=== PATIENT | male | born 1930 | race Caucasian/White ===

== ENCOUNTER 2020-04-01 14:06 | Emergency (ER) | payer MEDICARE, BC ==
--- NOTE | 2020-04-01 14:29 | EDM.PDOC ---
ED [facility] GENERAL MEDICAL PROBLEM - General Stated Complaint: CHEST PAIN Time Seen by Provider: 04/01/20 14:15 Source of Information: Reports: Patient History Limitations: Reports: No Limitations - History of Present Illness INITIAL COMMENTS - FREE TEXT/NARRATIVE: Patient comes in the emergency department with complaints of right sided chest discomfort. Patient states that the pain started approximately 7 hours ago. He did make an appointment at the clinic however they could not see him for another hour so they presented him to the emergency department for further evaluation and work-up. Patient states that he woke up and when he tried to get out of bed he noticed he had a right sided sternal discomfort. He states that it does hurt more with movement. He is states that it had progressed throughout the morning he did try to take a Tums with no relief. He denies any nausea or vomiting or discomfort radiating to his jaw or neck region. He states now that he is at the hospital with the pain has almost completely gone however he is able to pinpoint the location where the tenderness was noted. He states with deeper palpation of the region he could feel more discomfort. Patient denies currently having any chest pain, shortness of breath, nausea, vomiting, urinary concerns, or peripheral edema. Patient also states he is had no contact with any individuals with COVID 19 and states has been relatively healthy this winter. Patient also denies any strenuous activity within the last 24 to 48 hours. Onset: Sudden Location: Reports: Chest Quality: Reports: Sharp, Throbbing Improves with: Reports: Immobilization Worsens with: Reports: Movement Context: Reports: Other ED ROS GENERAL - Review of Systems Review Of Systems: Comprehensive ROS is negative, except as noted in HPI. Constitutional: Reports: No Symptoms HEENT: Reports: No Symptoms Respiratory: Reports: No Symptoms Endocrine: Reports: No Symptoms : Reports: No Symptoms Musculoskeletal: Reports: No Symptoms Skin: Reports: No Symptoms Neurological: Reports: No Symptoms Psychiatric: Reports: No Symptoms Hematologic/Lymphatic: Reports: No Symptoms ED EXAM, GENERAL - Physical Exam Exam: See Below Exam Limited By: No Limitations General Appearance: Alert, WD/WN, No Apparent Distress Head: Atraumatic, Normocephalic Respiratory/Chest: No Respiratory Distress, Lungs Clear, Normal Breath Sounds, No Accessory Muscle Use, Other (palpable discomfort noted with touch over 7-8 rib cage region and when when lifting arm up ) Cardiovascular: Normal Peripheral Pulses, Regular Rate, Rhythm, No Edema, No Gallop Back Exam: Normal Inspection, Full Range of Motion Extremities: Normal Inspection, Normal Range of Motion, Non-Tender, No Pedal Edema, Normal Capillary Refill Course - Orders/Labs/Meds Orders: Active Orders 24 hr Category Date Time Status EKG Documentation Completion [RC] STAT Care 04/01/20 14:35 Active Labs: Laboratory Tests 04/01/20 04/01/20 Range/Units 14:47 14:47 WBC 6.4 (4.0-10.0) x10^3/uL RBC 4.63 (4.5-6.0) x10^6/uL Hgb 13.4 L (14.0-18.0) g/dL Hct 41.0 (40.0-52.0) % MCV 88.6 (78.0-93.0) fL MCH 28.9 (26.0-32.0) pg MCHC 32.7 (32.0-36.0) g/dL RDW Coeff of Liz 14.2 (10.0-15.0) % Plt Count 172 (130-400) x10^3/uL Neut % (Auto) 72.2 (50.0-80.0) % Lymph % (Auto) 16.1 L (25.0-50.0) % [place] % (Auto) 9.9 (2.0-11.0) % Eos % (Auto) 1.6 (0.0-4.0) % Baso % (Auto) 0.2 (0.2-1.2) % Sodium 143 (136-145) mmol/L Potassium 3.8 (3.5-5.1) mmol/L Chloride 107 (98-107) mmol/L Carbon Dioxide 30 (21-32) mmol/L Anion Gap 9.8 L (10-20) mmol/L BUN 32 H (7-18) mg/dL Creatinine 1.4 H (0.70-1.30) mg/dL Est Cr Clr Drug Dosing TNP Estimated GFR (MDRD) 48 Glucose 101 (74-106) mg/dL Calcium 8.6 (8.5-10.1) mg/dL Corrected Calcium 9.16 (8.5-10.1) mg/dL Total Bilirubin 0.4 (0.2-1.0) mg/dL AST 15 (15-37) U/L ALT 15 L (16-63) U/L Alkaline Phosphatase 52 (46-116) U/L Troponin I < 0.017 (<=0.056) ng/mL Total Protein 6.3 L (6.4-8.2) g/dL Albumin 3.3 L (3.4-5.0) g/dL Globulin 3.0 Albumin/Globulin Ratio 1.10 Departure - Departure Time of Disposition: 15:25 Disposition: Home, Self-Care 01 Condition: Good Clinical Impression: Muscle strain of chest wall Qualifiers: Encounter type: initial encounter Qualified Code(s): S29.011A - Strain of muscle and tendon of front wall of thorax, initial encounter - Discharge Information *PRESCRIPTION DRUG MONITORING PROGRAM REVIEWED*: Not Applicable *COPY OF PRESCRIPTION DRUG MONITORING REPORT IN PATIENT ALICIA: Not Applicable Instructions: Muscle Strain, [id number], How to Use Cold Therapy, [id number] Additional Instructions: 1. Rest 2. Avoid strenuous use of the right shoulder arm if chest wall is tender 3. Can use tylenol and ibuprofen as needed for pain and discomfort 4. Diet as tolerated 5. Activity as tolerated 6. Elevated the injured area above the level of the heart to decrease swelling and discomfort. 7. Use ice 3-4 times a day at 20-minute intervals to help with any swelling and discomfort 8. Follow-up with your primary care provider symptoms continue or to progress 9. Follow with any questions or concerns 10. Discharge information has been provided regarding your injury - My Orders Last 24 Hours: My Active Orders 04/01/20 14:35 EKG Documentation Completion [RC] STAT - Assessment/Plan Last 24 Hours: My Active Orders 04/01/20 14:35 EKG Documentation Completion [RC] STAT Assessment:: 1. Chest pain 2. Chest wall muscle strain right side Plan: 1. Labs completed in the ER. Results reviewed with the patient 2. Chest xray completed in ER. Results reviewed with the patient 3. Did offer pain medications for discomfort however pt declined 4. EKG was completed in ER. Results reviewed with the patient 5. Patient and nursing staff was updated regarding the plan of care 6. Education provided the patient regarding activity, diet, rest, [id number] medication modalities, and follow-up care was provided 7. Patient and family are agreeable to the above plan of care 8. All questions and concerns were addressed with the patient and family prior to discharge
--- NOTE | 2020-04-01 15:03 | CR ---
[id number] RAD/RAD Chest PA or AP 1V EXAM: FRONTAL CHEST INDICATION: RIGHT SIDE CHEST PAIN. COMPARISON: None. DISCUSSION: Minor linear scarring or subsegmental atelectasis in the lung bases with no definite infiltrates. The heart is at upper limits of normal for size without evidence of congestive heart failure. Mild tortuosity of the thoracic aorta. IMPRESSION: 1. Mild linear scarring or atelectasis in the imaged lung bases. Adeel Benito MD 04/01/20 [id number] Thank you for allowing us to participate in the care of your patient.
[2020-04-01 15:18] LABS: ANION GAP 9.8 mmol/L (10-20); CHLORIDE,CL 107 mmol/L (98-107); SODIUM,NA 143 mmol/L (136-145)
== END 2020-04-01 15:39 | disposition home or self-care (01) ==
LOC: VM.ED 14:06
DX: S29.011A Strain of muscle and tendon of front wall of thorax, initial encounter (principal); X58.XXXA Exposure to other specified factors, initial encounter
CPT/HCPCS: 36415; 71045; 80053; 84484; 85025; 93005; 99283-GF; 99285-25

== ENCOUNTER 2021-04-10 18:40 | Emergency (ER) | payer MEDICARE, BC ==
--- NOTE | 2021-04-10 19:31 | EDM.PDOC ---
ED [facility] GENERAL MEDICAL PROBLEM - General Stated Complaint: STOMACH PAIN Time Seen by Provider: 04/10/21 19:29 Source of Information: Reports: Patient History Limitations: Reports: No Limitations - History of Present Illness INITIAL COMMENTS - FREE TEXT/NARRATIVE: Patient states that he had a good noon meal and about 2 hours after this he developed epigastric pain. No diaphoresis, no vomiting. Never had pain like this before. Decided to come in at 18:30 Pain has resolved since arrival. Did take a rolaids. Did have an episode a few weeks ago of something feeling stuck while he was eating and it took like 20 minutes to pass. He feels fine now. Onset: Today (1500) Duration: Hour(s):, Resolved Prior to Arrival Location: Reports: Abdomen Quality: Reports: Dull Severity: Moderate Improves with: Reports: None Worsens with: Reports: None - Related Data Allergies Allergy/AdvReac Type Severity Reaction Status Date / Time No Known Allergies Allergy Verified 04/01/20 21:02 Home Meds: Home Meds . [No Known Home Meds] 04/01/20 [History] Past Medical History Cardiovascular History: Reports: Hypertension Endocrine/Metabolic History: Reports: Hypothyroidism ED ROS GENERAL - Review of Systems Review Of Systems: See Below Constitutional: Reports: No Symptoms. Denies: Fever, Chills, Malaise, Decreased Appetite HEENT: Reports: No Symptoms. Denies: Eye Pain, Nosebleed, Nose Pain, Throat Pain, Throat Swelling Respiratory: Reports: No Symptoms. Denies: Shortness of Breath, Wheezing, Cough, Sputum Cardiovascular: Reports: No Symptoms. Denies: Chest Pain, Blood Pressure Problem, Dyspnea on Exertion Endocrine: Reports: No Symptoms. Denies: Fatigue GI/Abdominal: Reports: Abdominal Pain, Decreased Appetite. Denies: Black Stool, Bloody Stool, Diarrhea, Difficulty Swallowing, Nausea, Vomiting : Reports: No Symptoms. Denies: Dysuria, Frequency, Urgency Musculoskeletal: Reports: No Symptoms Skin: Reports: No Symptoms Neurological: Reports: No Symptoms Psychiatric: Reports: No Symptoms Hematologic/Lymphatic: Reports: No Symptoms ED EXAM, GI/ABD - Physical Exam Exam: See Below Exam Limited By: No Limitations General Appearance: Alert, WD/WN, No Apparent Distress Eyes: Bilateral: Normal Appearance, EOMI Ears: Normal External Exam Nose: Normal Inspection Throat/Mouth: Normal Inspection, Normal Lips, Normal Oropharynx, Normal Voice Head: Atraumatic, Normocephalic Neck: Normal Inspection, Supple, Non-Tender Respiratory/Chest: No Respiratory Distress, Lungs Clear, Normal Breath Sounds, No Accessory Muscle Use, Chest Non-Tender Cardiovascular: Normal Peripheral Pulses, Regular Rate, Rhythm, No Murmur GI/Abdominal Exam: Normal Bowel Sounds, Soft, Non-Tender, No Abnormal Bruit. No: Rigid, Rebound, Tender Back Exam: Normal Inspection, Full Range of Motion. No: CVA Tenderness (L), CVA Tenderness (R) Extremities: Normal Inspection, Normal Range of Motion #1 Interpretation EKG Date: 04/10/21 Time: 19:28 Rhythm: NSR Rate (Beats/Min): 76 [place]: LAD-Left [place] Deviation P-Wave: Present QRS: Normal ST-T: Normal EKG Interpretation Comments: PAC Course - Orders/Labs/Meds Orders: Active Orders 24 hr Category Date Time Status EKG Documentation Completion [RC] STAT Care 04/10/21 19:26 Active Abdomen Pelvis wo Cont [CT] Stat Exams 04/10/21 20:17 Taken Labs: Laboratory Tests 04/10/21 04/10/21 04/10/21 Range/Units 19:53 19:53 19:53 WBC 7.9 (4.0-10.0) x10^3/uL RBC 5.24 (4.5-6.0) x10^6/uL Hgb 15.0 D (14.0-18.0) g/dL Hct 44.7 (40.0-52.0) % MCV 85.3 D (78.0-93.0) fL MCH 28.6 (26.0-32.0) pg MCHC 33.6 (32.0-36.0) g/dL RDW Coeff of Liz 14.8 (10.0-15.0) % Plt Count 201 (130-400) x10^3/uL Neut % (Auto) 82.4 H (50.0-80.0) % Lymph % (Auto) 10.1 L (25.0-50.0) % [place] % (Auto) 6.1 (2.0-11.0) % Eos % (Auto) 1.4 (0.0-4.0) % Baso % (Auto) 0.0 L (0.2-1.2) % Sodium 140 (136-145) mmol/L Potassium 4.1 (3.5-5.1) mmol/L Chloride 104 (98-107) mmol/L Carbon Dioxide 27 (21-32) mmol/L Anion Gap 13.1 (5-15) mmol/L BUN 32 H (7-18) mg/dL Creatinine 1.5 H (0.70-1.30) mg/dL Est Cr Clr Drug Dosing TNP Estimated GFR (MDRD) 44 Glucose 132 H (70-99) mg/dL Calcium 9.0 (8.5-10.1) mg/dL Corrected Calcium 9.5 (8.5-10.1) mg/dL Total Bilirubin 0.3 (0.2-1.0) mg/dL AST 20 (15-37) U/L ALT 18 (16-63) U/L Alkaline Phosphatase 70 (46-116) U/L Troponin I High Sens 6 (<=76) ng/L Total Protein 7.3 (6.4-8.2) g/dL Albumin 3.4 (3.4-5.0) g/dL Globulin 3.9 Albumin/Globulin Ratio 0.87 Lipase 130 (73-393) U/L TSH, Ultra Sensitive 4.856 H (0.358-3.74) uIU/mL Urine Color (YELLOW) Urine Appearance (CLEAR) Urine pH (5.0-8.0) Ur Specific [place] Urine Protein (NEGATIVE) mg/dL Urine Glucose (UA) (NEGATIVE) mg/dL Urine Ketones (NEGATIVE) mg/dL Urine Occult Blood (NEGATIVE) Urine Nitrite (NEGATIVE) Urine Bilirubin (NEGATIVE) Urine Urobilinogen (0.2) EU/dL Ur Leukocyte Esterase (NEGATIVE) Urine RBC (NOT SEEN) /HPF Urine WBC (NOT SEEN) /HPF Ur Squamous Epith Cells (NOT SEEN) /HPF Urine Bacteria (NOT SEEN) /HPF Urine Mucus (NOT SEEN) /LPF 04/10/21 Range/Units 20:48 WBC (4.0-10.0) x10^3/uL RBC (4.5-6.0) x10^6/uL Hgb (14.0-18.0) g/dL Hct (40.0-52.0) % MCV (78.0-93.0) fL MCH (26.0-32.0) pg MCHC (32.0-36.0) g/dL RDW Coeff of Liz (10.0-15.0) % Plt Count (130-400) x10^3/uL Neut % (Auto) (50.0-80.0) % Lymph % (Auto) (25.0-50.0) % [place] % (Auto) (2.0-11.0) % Eos % (Auto) (0.0-4.0) % Baso % (Auto) (0.2-1.2) % Sodium (136-145) mmol/L Potassium (3.5-5.1) mmol/L Chloride (98-107) mmol/L Carbon Dioxide (21-32) mmol/L Anion Gap (5-15) mmol/L BUN (7-18) mg/dL Creatinine (0.70-1.30) mg/dL Est Cr Clr Drug Dosing Estimated GFR (MDRD) Glucose (70-99) mg/dL Calcium (8.5-10.1) mg/dL Corrected Calcium (8.5-10.1) mg/dL Total Bilirubin (0.2-1.0) mg/dL AST (15-37) U/L ALT (16-63) U/L Alkaline Phosphatase (46-116) U/L Troponin I High Sens (<=76) ng/L Total Protein (6.4-8.2) g/dL Albumin (3.4-5.0) g/dL Globulin Albumin/Globulin Ratio Lipase (73-393) U/L TSH, Ultra Sensitive (0.358-3.74) uIU/mL Urine Color Yellow (YELLOW) Urine Appearance Clear (CLEAR) Urine pH 5.5 (5.0-8.0) Ur Specific [place] >=1.030 Urine Protein Negative (NEGATIVE) mg/dL Urine Glucose (UA) Negative (NEGATIVE) mg/dL Urine Ketones Negative (NEGATIVE) mg/dL Urine Occult Blood Negative (NEGATIVE) Urine Nitrite Negative (NEGATIVE) Urine Bilirubin Negative (NEGATIVE) Urine Urobilinogen 1.0 (0.2) EU/dL Ur Leukocyte Esterase Negative (NEGATIVE) Urine RBC 5-10 H (NOT SEEN) /HPF Urine WBC 0-5 (NOT SEEN) /HPF Ur Squamous Epith Cells Not seen (NOT SEEN) /HPF Urine Bacteria Rare (NOT SEEN) /HPF Urine Mucus Moderate H (NOT SEEN) /LPF - Radiology Interpretation Free Text/Narrative:: increased attenuation in the gallbladder likely gael stones or sludge, gallbladder wall thickening. acute cholecystitis is suspected, aneurysmal dilatation of the infracrenal aorta 6.1 cm non emergent surgical referral is recommended, marked enlargement of the prostate. interpreted by radiology - Re-Assessments/Exams Free Text/Narrative Re-Assessment/Exam: 04/10/21 19:46 Patient does not currently have pain. will check labs, urine and ekg. 04/10/21 21:48 Discussed with patient, significant other and son. they understand the diagnosis, need for follow up and when to return. He has a PC and will follow up . Labs otherwise look good. return as needed. Will send with hydrocodone a nd zofran Departure - Departure Time of Disposition: 21:39 Disposition: Home, Self-Care 01 Clinical Impression: Hypothyroid, Cholecystitis, Abdominal aortic aneurysm (AAA) >39 mm diameter, BPH (benign prostatic hyperplasia) - Discharge Information *PRESCRIPTION DRUG MONITORING PROGRAM REVIEWED*: Not Applicable *COPY OF PRESCRIPTION DRUG MONITORING REPORT IN PATIENT ALICIA: Not Applicable Instructions: Abdominal Aortic Aneurysm, [id number], Hypothyroidism, Gallbladder Eating Plan, Cholecystitis, [id number], Benign Prostatic Hyperplasia Referrals: Bozena Roldan, [Primary Care Provider] - Additional Instructions: You TSH is mildly elevated, contact your physician to discuss changes in your thyroid medications You have an abdominal aneursym below the renal arteries measuring 6.1 cm. No signs of dissection or rupture noted. Non emergent surgical evaluation and correction is needed. You primary care physician can set this up. Call tomorrow You have enlargement of your prostate gland, this will cause you to struggle to empty your bladder or get up at night to urinate. Call your physician for referral to urology for management You have gallbladder wall thickening and inflammation. Your white blood cell count and liver function are normal. This needs surgical referral for removal and may continue to bother you . Follow a low fat diet. Use the nausea medication every 8 hours as needed for upset stomach and use the pain medication every 6 hours as needed for pain. This will cause constipation. Make ap pointment with surgeon for referral and surgery. return to the ED as needed for abdominal pain not managed. - My Orders Last 24 Hours: My Active Orders 04/10/21 19:26 EKG Documentation Completion [RC] STAT 04/10/21 20:17 Abdomen Pelvis wo Cont [CT] Stat - Assessment/Plan Last 24 Hours: My Active Orders 04/10/21 19:26 EKG Documentation Completion [RC] STAT 04/10/21 20:17 Abdomen Pelvis wo Cont [CT] Stat
[2021-04-10 20:44] LABS: CHLORIDE,CL 104 mmol/L (98-107); SODIUM,NA 140 mmol/L (136-145)
[2021-04-10 20:46] LABS: ANION GAP 13.1 mmol/L (5-15)
[2021-04-10] MEDS ORDERED: Take Home: Acetaminophen/HYDROcodone 325-5 MG, 5 Tab Pack PO ONE (21:45)
[2021-04-10] MEDS ORDERED: Take Home: Ondansetron 4 MG Tab.DIS, 2 Tab Pack PO ONE (21:45)
--- NOTE | 2021-04-11 07:48 | CT ---
[id number] CT/CT Abdomen Pelvis WO IV EXAM: CT Abdomen Pelvis WO IV CLINICAL DATA: ABDOMINAL PAIN COMPARISON STUDY: None. FINDINGS: Dependent atelectasis at the lung bases. Chronic interstitial changes at the lung bases. Coronary artery disease. Atherosclerotic calcifications of aorta and its branches. Infrarenal abdominal aortic aneurysm measuring up to 6.4 cm. Multiple layering stones within the gallbladder. The gallbladder is distended. There is pericholecystic fluid and gallbladder wall thickening. The liver, spleen, pancreas, adrenal glands and kidneys are unremarkable. Simple appearing right renal cyst. No bowel obstruction or inflammation. Colonic diverticulosis without evidence of acute diverticulitis. No lymphadenopathy, free fluid, or pneumoperitoneum. The prostate is massively enlarged. Scattered changes of spondylosis the spine. No fracture or osseous lesion. IMPRESSION: 1. Multiple layering stones within the gallbladder which is distended. There is pericholecystic fluid and gallbladder wall thickening. Findings are suspicious for acute cholecystitis. 2. 6.4 cm infrarenal abdominal aortic aneurysm. Vascular surgery consultation is recommended. Agusto Michaels DO 04/11/21 0721 Thank you for allowing us to participate in the care of your patient.
== END 2021-04-10 21:58 | disposition home or self-care (01) ==
LOC: VM.ED 18:40
DX: I71.4 Abdominal aortic aneurysm, without rupture (principal); N40.0 Benign prostatic hyperplasia without lower urinary tract symptoms; K81.9 Cholecystitis, unspecified; E03.9 Hypothyroidism, unspecified; I10 Essential (primary) hypertension
CPT/HCPCS: 36415; 74176; 80053; 81001; 83690; 84443; 84484; 85025; 93005; 93010; 99284; 99284-25; A9270-GY

== ENCOUNTER 2021-04-28 03:40 | Emergency (ER) | payer MEDICARE, BC ==
[2021-04-28] MEDS ORDERED: Famotidine 20 MG/2 ML SDV IVPUSH ONE (04:04)
[2021-04-28] MEDS ORDERED: Sodium Chloride 0.9% 10 ML Syringe FLUSH PRN (04:04)
[2021-04-28] MEDS ORDERED: Sodium Chloride 0.9% 1,000 ML IV ONE (04:04)
[2021-04-28] MEDS ORDERED: Ondansetron 4 MG/2 ML SDV IVPUSH ONE (04:04)
[2021-04-28] MEDS ORDERED: Morphine 2 MG/ML SYRINGE IVPUSH ONE (04:04)
--- NOTE | 2021-04-28 04:17 | EDM.PDOC ---
ED HPI GENERAL MEDICAL PROBLEM - General Chief Complaint: Gastrointestinal Problem Stated Complaint: epigastric pain Time Seen by Provider: 04/28/21 04:00 Source of Information: Reports: Patient, EMS, Old Records History Limitations: Reports: Other (slight memory impairment) - History of Present Illness INITIAL COMMENTS - FREE TEXT/NARRATIVE: Patient arrives via ems for epigastric pain since 1 am. He is in assisted living and this author saw him on 04/10/2021. He was evaluated and found to have an abdominal aortic aneurysm, cholelithiasis, BPH ad throid problems. He has fol lowed up with his PCP. Had a gallbladder ultrasound and a CTA of the abdomen and a vascular surgery consult. He ate a small hamburger steak before bed and was feeling fine. He was awakened at 1 am with epigastric pain. He was told to present to the ED immediately for pain with concern for above diagnosis. He did try two tums prior to coming. States he has been eating and drinking well, normal bowel movements, feels he is emptying his bladder well. NO fevers or chills. 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: Other Medication(s) (tums) Upper Abdominal Pain Score (Numeric/FACES): 5 - Related Data Allergies Allergy/AdvReac Type Severity Reaction Status Date / Time No Known Allergies Allergy Verified 04/11/21 03:25 Home Meds: Home Meds Benazepril HCl 5 mg PO DAILY 04/11/21 [History] Levothyroxine 25 mcg PO DAILY 04/11/21 [History] Famotidine [Pepcid] 20 mg PO DAILY #20 tab 04/28/21 [Rx] ondansetron HCL [Zofran] 4 mg PO Q8HR #10 tablet 04/28/21 [Rx] Past Medical History Cardiovascular History: Reports: Aneurysm (6.4 infrarenal AAA), Hypertension Gastrointestinal History: Reports: Cholelithiasis Genitourinary History: Reports: BPH Endocrine/Metabolic History: Reports: Hypothyroidism ED ROS GENERAL - Review of Systems Review Of Systems: See Below Constitutional: Reports: No Symptoms. Denies: Fever, Chills HEENT: Reports: No Symptoms Respiratory: Reports: No Symptoms. Denies: Shortness of Breath, Wheezing, Cough Cardiovascular: Reports: No Symptoms. Denies: Chest Pain, Dyspnea on Exertion Endocrine: Reports: No Symptoms. Denies: Fatigue GI/Abdominal: Reports: Abdominal Pain (epigastric), Nausea. Denies: Vomiting : Denies: Frequency, Urinary Retention Musculoskeletal: Reports: No Symptoms Skin: Reports: No Symptoms Neurological: Reports: No Symptoms. Denies: Headache ED EXAM, GI/ABD - Physical Exam Exam: See Below Exam Limited By: No Limitations General Appearance: Alert, WD/WN, No Apparent Distress Eyes: Bilateral: Normal Appearance, EOMI (Perrla) Ears: Normal External Exam Nose: Normal Inspection, Normal Mucosa Throat/Mouth: Normal Lips, Normal Voice, Other (dry) Head: Atraumatic Neck: Normal Inspection Respiratory/Chest: No Respiratory Distress, Lungs Clear, Chest Non-Tender Cardiovascular: Regular Rate, Rhythm, No Edema GI/Abdominal Exam: Normal Bowel Sounds, No Organomegaly, No Distention, Tender (mild tenderness at the epigastric are, not rigidity or rebound, negative murphys sign) Extremities: Normal Inspection, Non-Tender, No Pedal Edema Neurological: Alert, CN II-XII Intact, Normal Cognition, Normal Gait, No Motor/Sensory Deficits Psychiatric: Normal Affect #1 Interpretation EKG Date: 04/28/21 Time: 04:08 Rhythm: NSR Rate (Beats/Min): 54 P-Wave: Present QRS: Normal ST-T: Normal Comparison: No Change EKG Interpretation Comments: some PACs Course - Vital Signs Last Recorded V/S: Last Vital Signs Temp 36.6 C 04/28/21 03:40 Pulse 74 04/28/21 03:40 Resp 16 04/28/21 03:40 BP 139/106 H 04/28/21 03:40 Pulse Ox 92 L 04/28/21 03:40 - Orders/Labs/Meds Orders: Active Orders 24 hr Category Date Time Status EKG Documentation Completion [RC] STAT Care 04/28/21 04:04 Ordered CBC WITH AUTO DIFF [HEME] Stat Lab 04/28/21 04:04 Ordered COMPREHENSIVE METABOLIC PN,CMP [CHEM] Stat Lab 04/28/21 04:04 Ordered LIPASE [CHEM] Stat Lab 04/28/21 04:04 Ordered TROPONIN I HIGH SENSITIVITY [CHEM] Stat Lab 04/28/21 04:04 Ordered Sodium Chloride 0.9% @ Wide Open(1,000ml) Med 04/28/21 04:04 Ordered Sodium Chloride 0.9% [Normal Saline] 1,000 ml IV ONETIME Sodium Chloride 0.9% [Saline Flush] Med 04/28/21 04:04 Ordered 10 ml FLUSH ASDIRECTED PRN Peripheral IV Insertion Adult [OM.PC] Routine Oth 04/28/21 04:04 Ordered Medication Orders Sodium Chloride (Normal Saline) 1,000 mls @ 999 mls/hr IV ONETIME ONE Stop: 04/28/21 05:04 Sodium Chloride (Sodium Chloride 0.9% 10 Ml Syringe) 10 ml FLUSH ASDIRECTED PRN PRN Reason: Keep Vein Open Meds: Medications Generic Name Dose Route Start Last Admin Trade Name Freq PRN Reason Stop Dose Admin Sodium Chloride 1,000 mls @ 999 mls/hr 04/28/21 04:04 Normal Saline IV 04/28/21 05:04 ONETIME ONE Sodium Chloride 10 ml 04/28/21 04:04 Sodium Chloride 0.9% 10 Ml Syringe FLUSH ASDIRECTED PRN Keep Vein Open Discontinued Medications Generic Name Dose Route Start Last Admin Trade Name Freq PRN Reason Stop Dose Admin Famotidine 20 mg 04/28/21 04:04 Famotidine 20 Mg/2 Ml Sdv IVPUSH 04/28/21 04:05 ONETIME ONE Morphine Sulfate 2 mg 04/28/21 04:04 Morphine 2 Mg/Ml Syringe IVPUSH 04/28/21 04:05 ONETIME ONE Ondansetron HCl 4 mg 04/28/21 04:04 Ondansetron 4 Mg/2 Ml Sdv IVPUSH 04/28/21 04:05 ONETIME ONE - Radiology Interpretation Free Text/Narrative:: Patient Name: WARNER HUTTON Date of : 1930 Procedure: US ABDOMEN LIMITED Date of Service: 04/12/2021 EXAM: US ABDOMEN LIMITED INDICATION: ICD-10 K80.20 Gallstones ICD-10 R10.11 RUQ pain abdominal pain COMPARISON: None available. TECHNIQUE: Vance-scale and Color Doppler imaging was performed of the right upper quadrant abdomen. The images are submitted for review. FINDINGS: Liver: Normal in size and echotexture. No intrahepatic ductal dilation. Gallbladder: Gallbladder appears distended containing low-level internal echoes and echogenic shadowing cholelithiasis. Focal area of gallbladder wall thickening measuring upwards of 5-6 mm. No pericholecystic fluid. Per the generation technologist, a sonographic Cantu sign is not present. CBD: 4 mm. Pancreas: Unremarkable where visualized. Right Kidney: Normal in size and echotexture. No suspicious mass or hydronephrosis. Anechoic thin-walled 1.8 cm benign-appearing cyst. IMPRESSION: 1. Distended gallbladder containing microlithiasis and biliary sludge without sonographic evidence of acute cholecystitis. Focal area of gallbladder wall thickening measuring upwards of 5-6 mm. No pericholecystic fluid or sonographic Cantu sign. 2. Benign-appearing right renal cyst measuring 1.8 cm. 3. Pancreas partially visualized. Finalized by: Michelle Aragon MD on 04/12/2021 11:20 AM CDT Note CTA angioabdomen and pelvis were done on 04/14/2021. Can not see the images, no report - Re-Assessments/Exams Free Text/Narrative Re-Assessment/Exam: 04/28/21 04:13 note from clinic visit for follow up after last ED visit. Clinic visit on 04/12/2021 Assessment / Plan Gallstones Vitamin B 12 deficiency Abdominal aortic aneurysm (AAA) without rupture (HCC) - CLINIC REFERRAL VASCULAR ONE CHART Benign prostatic hyperplasia without lower urinary tract symptoms Essential hypertension Cognitive impairment Hypothyroidism due to acquired atrophy of thyroid Plan: Patient Instructions 1. Recheck in June with labs as planned 2. Labs today for the kidneys and liver 3. If attacks of stomach or chest pain return to the ER again don't wait 4. Ultrasound of the gallbladder today and then likely a surgical referral 5. Nothing further for the prostate right now unless you have trouble passing urine 6. Good idea to drink more water and eat less fatty foods like only the chicken not the skin, not so much gravy or pizza 7. See a Vascular specialist about the aneurysm there are newer techniques to fix these rather than open surgery US confirmed gallstones, surgery referral made Return if symptoms worsen or fail to improve. 04/28/21 04:40 Patient is already improving in his pain. Was to have a vascular surgery telehealth appointment yesterday, but cancelled per physician. Feeling better, given IV fluids, pepcid 20 mg IVP, zofran 4 mg IVP, declines pain medications. Will check labs. 04/28/21 05:23 Labs and ekg are normal. has been sleeping without complaints. Follow up with surgery, low fat diet and pepcid and zofran as needed Departure - Departure Time of Disposition: 05:24 Disposition: Home, Self-Care 01 Clinical Impression: Abdominal pain, Cholecystitis - Discharge Information *PRESCRIPTION DRUG MONITORING PROGRAM REVIEWED*: Not Applicable *COPY OF PRESCRIPTION DRUG MONITORING REPORT IN PATIENT ALICIA: Not Applicable Prescriptions: Famotidine [Pepcid] 20 mg PO DAILY #20 tab ondansetron HCL [Zofran] 4 mg PO Q8HR #10 tablet Instructions: Gallbladder Eating Plan, Abdominal Pain, Adult, [id number] Additional Instructions: Testing today is normal. The pain you had could be due to the gallstones you have. Continue with a low fat diet. Keep appointments with surgery. Use the pepcid for stomach upset that you should take daily for a couple of weeks. It also decreases the acid in the stomach. Use the zofran for nausea.as needed Sepsis Event Note (ED) - Evaluation Sepsis Screening Result: No Definite Risk - Focused Exam Vital Signs: Vital Signs Temp Pulse Resp BP Pulse Ox 04/28/21 03:40 36.6 C 74 16 139/106 H 92 L - My Orders Last 24 Hours: My Active Orders 04/28/21 04:04 EKG Documentation Completion [RC] STAT CBC WITH AUTO DIFF [HEME] Stat COMPREHENSIVE METABOLIC PN,CMP [CHEM] Stat LIPASE [CHEM] Stat TROPONIN I HIGH SENSITIVITY [CHEM] Stat Sodium Chloride 0.9% @ Wide Open(1,000ml) Sodium Chloride 0.9% [Normal Saline] 1,000 ml IV ONETIME Sodium Chloride 0.9% [Saline Flush] 10 ml FLUSH ASDIRECTED PRN Peripheral IV Insertion Adult [OM.PC] Routine - Assessment/Plan Last 24 Hours: My Active Orders 04/28/21 04:04 EKG Documentation Completion [RC] STAT CBC WITH AUTO DIFF [HEME] Stat COMPREHENSIVE METABOLIC PN,CMP [CHEM] Stat LIPASE [CHEM] Stat TROPONIN I HIGH SENSITIVITY [CHEM] Stat Sodium Chloride 0.9% @ Wide Open(1,000ml) Sodium Chloride 0.9% [Normal Saline] 1,000 ml IV ONETIME Sodium Chloride 0.9% [Saline Flush] 10 ml FLUSH ASDIRECTED PRN Peripheral IV Insertion Adult [OM.PC] Routine
[2021-04-28 05:11] LABS: ANION GAP 12.1 mmol/L (5-15)
== END 2021-04-28 05:48 | disposition home or self-care (01) ==
LOC: VM.ED 03:40
DX: K81.9 Cholecystitis, unspecified (principal); E03.9 Hypothyroidism, unspecified; I10 Essential (primary) hypertension; Z79.899 Other long term (current) drug therapy
CPT/HCPCS: 80053; 83690; 84484; 85025; 93005; 93010; 96374; 96375; 99284; 99285-25; J2405; J3490; J7030

== ENCOUNTER 2021-10-19 20:59 | Emergency (ER) | payer MEDICARE, BC ==
--- NOTE | 2021-10-19 21:15 | EDM.PDOC ---
ED HPI GENERAL MEDICAL PROBLEM - General Chief Complaint: General Stated Complaint: CONFUSION AND SLEEPY Time Seen by Provider: 10/19/21 20:59 Source of Information: Reports: Patient History Limitations: Reports: No Limitations - History of Present Illness INITIAL COMMENTS - FREE TEXT/NARRATIVE: The emergency department by ambulance with increased confusion and sleepiness. Patient does have a baseline of confusion and is in assisted living for memory care. Patient states that he has been more sleepy today. Family at EMS state the reason they were contacted by the facility was that the patient had been sleeping more today and had been more confused with staff. Patient report with EMS is more alert and oriented but is pleasantly confused regarding who the president is and the month however is able to articulate other cultural relevant events. He denies any pain or discomforts. He also denies any illnesses. 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 Constitutional: Reports: No Symptoms HEENT: Reports: No Symptoms Respiratory: Reports: No Symptoms Cardiovascular: Reports: No Symptoms Endocrine: Reports: No Symptoms GI/Abdominal: Reports: No Symptoms : Reports: No Symptoms Musculoskeletal: Reports: No Symptoms Skin: Reports: No Symptoms Neurological: Reports: No Symptoms Psychiatric: Reports: Confusion Hematologic/Lymphatic: Reports: No Symptoms Immunologic: Reports: No Symptoms ED EXAM, GENERAL - Physical Exam Exam: See Below Exam Limited By: No Limitations General Appearance: Alert, WD/WN, No Apparent Distress Head: Atraumatic, Normocephalic Neck: Normal Inspection, Supple, Non-Tender, Full Range of Motion Respiratory/Chest: No Respiratory Distress, Lungs Clear, Normal Breath Sounds, No Accessory Muscle Use, Chest Non-Tender Cardiovascular: Normal Peripheral Pulses, Regular Rate, Rhythm, No Edema GI/Abdominal: Normal Bowel Sounds, Soft, Non-Tender, No Abnormal Bruit Extremities: Normal Inspection, Normal Range of Motion, Non-Tender, No Pedal Edema, Normal Capillary Refill Neurological: Alert, Oriented, CN II-XII Intact, Normal Gait, Memory Loss Remote Events Psychiatric: Normal Affect, Normal Mood Skin Exam: Warm, Dry, Intact, Normal Color Course - Orders/Labs/Meds Labs: Laboratory Tests 10/19/21 10/19/21 10/19/21 Range/Units 21:25 21:27 21:27 WBC 5.3 (4.0-10.0) x10^3/uL RBC 5.18 (4.5-6.0) x10^6/uL Hgb 14.5 (14.0-18.0) g/dL Hct 43.1 (40.0-52.0) % MCV 83.2 (78.0-93.0) fL MCH 28.0 (26.0-32.0) pg MCHC 33.6 (32.0-36.0) g/dL RDW Coeff of Liz 14.0 (10.0-15.0) % Plt Count 184 (130-400) x10^3/uL Immature Gran % (Auto) 0.40 (0.00-0.43) % Neut % (Auto) 78.7 (50.0-80.0) % Lymph % (Auto) 11.1 L (25.0-50.0) % Worth % (Auto) 9.6 (2.0-11.0) % Eos % (Auto) 0.0 (0.0-4.0) % Baso % (Auto) 0.2 (0.2-1.2) % Neut # (Auto) 4.2 (1.8-7.7) x10^3/uL Lymph # (Auto) 0.6 L (1.0-4.8) x10^3/uL Worth # (Auto) 0.5 (0.0-0.8) x10^3/uL Eos # (Auto) 0.0 (0.0-0.5) x10^3/uL Baso # (Auto) 0.0 (0.0-0.2) x10^3/uL Immature Gran # (Auto) 0.02 (0.00-0.07) x10^3/uL Sodium 138 (136-145) mmol/L Potassium 3.9 (3.5-5.1) mmol/L Chloride 103 (98-107) mmol/L Carbon Dioxide 23 (21-32) mmol/L Anion Gap 15.9 H (5-15) mmol/L BUN 29 H (7-18) mg/dL Creatinine 1.2 (0.70-1.30) mg/dL Est Cr Clr Drug Dosing TNP Estimated GFR (MDRD) 57 Glucose 92 (70-99) mg/dL Lactic Acid (0.4-2.0) mmol/L Calcium 9.1 (8.5-10.1) mg/dL Corrected Calcium 9.7 (8.5-10.1) mg/dL Total Bilirubin 0.7 (0.2-1.0) mg/dL AST 18 (15-37) U/L ALT 20 (16-63) U/L Alkaline Phosphatase 75 (46-116) U/L NT-Pro-B Natriuret Pep 224 (<=450) pg/mL Total Protein 7.0 (6.4-8.2) g/dL Albumin 3.3 L (3.4-5.0) g/dL Globulin 3.7 Albumin/Globulin Ratio 0.89 Urine Color (YELLOW) Urine Appearance (CLEAR) Urine pH (5.0-8.0) Ur Specific Pritchett Urine Protein (NEGATIVE) mg/dL Urine Glucose (UA) (NEGATIVE) mg/dL Urine Ketones (NEGATIVE) mg/dL Urine Occult Blood (NEGATIVE) Urine Nitrite (NEGATIVE) Urine Bilirubin (NEGATIVE) Urine Urobilinogen (0.2) EU/dL Ur Leukocyte Esterase (NEGATIVE) Influenza Type A RNA Negative (NEGATIVE) Influenza Type B RNA Negative (NEGATIVE) SARS-CoV-2 RNA (TORRIE) Negative (NEGATIVE) 10/19/21 10/19/21 Range/Units 21:27 22:01 WBC (4.0-10.0) x10^3/uL RBC (4.5-6.0) x10^6/uL Hgb (14.0-18.0) g/dL Hct (40.0-52.0) % MCV (78.0-93.0) fL MCH (26.0-32.0) pg MCHC (32.0-36.0) g/dL RDW Coeff of Liz (10.0-15.0) % Plt Count (130-400) x10^3/uL Immature Gran % (Auto) (0.00-0.43) % Neut % (Auto) (50.0-80.0) % Lymph % (Auto) (25.0-50.0) % Worth % (Auto) (2.0-11.0) % Eos % (Auto) (0.0-4.0) % Baso % (Auto) (0.2-1.2) % Neut # (Auto) (1.8-7.7) x10^3/uL Lymph # (Auto) (1.0-4.8) x10^3/uL Worth # (Auto) (0.0-0.8) x10^3/uL Eos # (Auto) (0.0-0.5) x10^3/uL Baso # (Auto) (0.0-0.2) x10^3/uL Immature Gran # (Auto) (0.00-0.07) x10^3/uL Sodium (136-145) mmol/L Potassium (3.5-5.1) mmol/L Chloride (98-107) mmol/L Carbon Dioxide (21-32) mmol/L Anion Gap (5-15) mmol/L BUN (7-18) mg/dL Creatinine (0.70-1.30) mg/dL Est Cr Clr Drug Dosing Estimated GFR (MDRD) Glucose (70-99) mg/dL Lactic Acid 0.8 (0.4-2.0) mmol/L Calcium (8.5-10.1) mg/dL Corrected Calcium (8.5-10.1) mg/dL Total Bilirubin (0.2-1.0) mg/dL AST (15-37) U/L ALT (16-63) U/L Alkaline Phosphatase (46-116) U/L NT-Pro-B Natriuret Pep (<=450) pg/mL Total Protein (6.4-8.2) g/dL Albumin (3.4-5.0) g/dL Globulin Albumin/Globulin Ratio Urine Color Yellow (YELLOW) Urine Appearance Clear (CLEAR) Urine pH 5.5 (5.0-8.0) Ur Specific P[place]chett 1.025 Urine Protein Negative (NEGATIVE) mg/dL Urine Glucose (UA) Negative (NEGATIVE) mg/dL Urine Ketones Negative (NEGATIVE) mg/dL Urine Occult Blood Negative (NEGATIVE) Urine Nitrite Negative (NEGATIVE) Urine Bilirubin Negative (NEGATIVE) Urine Urobilinogen 0.2 (0.2) EU/dL Ur Leukocyte Esterase Negative (NEGATIVE) Influenza Type A RNA (NEGATIVE) Influenza Type B RNA (NEGATIVE) SARS-CoV-2 RNA (TORRIE) (NEGATIVE) Departure - Departure Time of Disposition: 22:30 Disposition: Home, Self-Care 01 Clinical Impression: Chronic confusional state - Discharge Information *PRESCRIPTION DRUG MONITORING PROGRAM REVIEWED*: Not Applicable *COPY OF PRESCRIPTION DRUG MONITORING REPORT IN PATIENT ALICIA: Not Applicable Instructions: Confusion Forms: ED Department Discharge Additional Instructions: 1. rest 2. increase your water intake 3. Continue all at home medications 4. Activity and diet as tolerated 5. Can take over the counter Tylenol for any pain or discomfort 6. Follow up with PCP if symptoms continue, return, or progress 7. Call with any questions or concerns 8. Follow up with PCP with request for further memory testing - Assessment/Plan Assessment:: 1. Confusion 2. sleepiness Plan: 1. Labs completed in the ER. Results reviewed with the patient 2. UA completed in ER 3. Covid/influenza/RSV- negative 4. Patient and nursing staff was updated regarding the plan of care 5. Education provided the patient regarding activity, diet, rest, [id number] medication modalities, and follow-up care was provided 6. Patient and family are agreeable to the above plan of care 7. All questions and concerns were addressed with the patient and family prior to discharge
[2021-10-19 22:08] LABS: CHLORIDE,CL 103 mmol/L (98-107); SODIUM,NA 138 mmol/L (136-145)
[2021-10-19 22:11] LABS: ANION GAP 15.9 mmol/L (5-15)
[2021-10-19 22:19] LABS: CORONAVIRUS COVID-19 NAA NEGATIVE (NEGATIVE)
== END 2021-10-19 22:45 | disposition home or self-care (01) ==
LOC: VM.ED 20:59
DX: R41.0 Disorientation, unspecified (principal); G47.00 Insomnia, unspecified; E03.9 Hypothyroidism, unspecified; I10 Essential (primary) hypertension; N40.0 Benign prostatic hyperplasia without lower urinary tract symptoms; Z79.899 Other long term (current) drug therapy; Z20.822 Contact with and (suspected) exposure to COVID-19
CPT/HCPCS: 0240U; 36415; 80053; 81003; 83605; 83880; 85025; 99284; 99285

== ENCOUNTER 2021-10-23 10:34 | Emergency (ER) | payer MEDICARE, BC ==
--- NOTE | 2021-10-23 11:14 | EDM.PDOC ---
ED HPI GENERAL MEDICAL PROBLEM - General Chief Complaint: Back Pain or Injury Stated Complaint: back pain Time Seen by Provider: 10/23/21 10:35 Source of Information: Reports: Patient, EMS, EMS Notes Reviewed, Family History Limitations: Reports: Other (history of confusion at baseline, limited historian) - History of Present Illness INITIAL COMMENTS - FREE TEXT/NARRATIVE: Patient presents to the ED for right low back, hip, flank pain. He is slightly confused at baseline and lives at home with family. According to his daughter he has been having right hip/back pain for the last couple of days and has been taking ibuprofen for it and this has helped. No falls or trauma that anyone is aware of. He has been eating and drinking normally, slight change in urine stream he thinks. Normal bowel movement. today he got up, took his morning medications , ate and then complained of the pain so laid back down. family called EMS. He was able to help move onto the stretcher, no interventions by EMS. Onset: Unknown/Unsure Right Lumbar Pain Score (Numeric/FACES): 5 - Related Data Allergies Allergy/AdvReac Type Severity Reaction Status Date / Time Sulfa (Sulfonamide Allergy Cannot Verified 10/23/21 10:54 Antibiotics) Remember Home Meds: Home Meds Levothyroxine 25 mcg PO DAILY 04/11/21 [History] Aspirin 81 mg PO DAILY 10/20/21 [History] Past Medical History Cardiovascular History: Reports: Aneurysm, Hypertension Gastrointestinal History: Reports: Cholelithiasis Genitourinary History: Reports: BPH Endocrine/Metabolic History: Reports: Hypothyroidism Social & Family History - Family History Family Medical History: No Pertinent Family History - Tobacco Use Tobacco Use Status *Q: Unknown Ever Used Tobacco ED ROS GENERAL - Review of Systems Review Of Systems: See Below Reason Not Obtained: limited history due to history of confusion Constitutional: Reports: No Symptoms HEENT: Reports: No Symptoms Respiratory: Reports: No Symptoms Cardiovascular: Reports: No Symptoms Endocrine: Reports: No Symptoms GI/Abdominal: Reports: No Symptoms : Reports: Frequency. Denies: Dysuria, Hematuria Musculoskeletal: Reports: Back Pain (and right hip/buttock pain) Skin: Reports: No Symptoms Neurological: Reports: No Symptoms Psychiatric: Reports: No Symptoms ED EXAM, GENERAL - Physical Exam Exam: See Below Exam Limited By: No Limitations General Appearance: Alert, WD/WN, No Apparent Distress Eye Exam: Bilateral Eye: EOMI, Normal Inspection, PERRL Ears: Normal External Exam, Hearing Loss Nose: Normal Inspection, Normal Mucosa Throat/Mouth: Normal Inspection, Normal Lips, Normal Voice Head: Atraumatic Neck: Normal Inspection, Supple. No: Lymphadenopathy (L), Lymphadenopathy (R) Respiratory/Chest: No Respiratory Distress, Lungs Clear Cardiovascular: Normal Peripheral Pulses, Regular Rate, Rhythm. No: No Murmur GI/Abdominal: Normal Bowel Sounds, Soft, Non-Tender. No: Rigid, Rebound Back Exam: Normal Inspection, Full Range of Motion, Other (no lesions or rashes, no tenderness to palpation of the spine. no cva tenderness. some tenderness to palpation of the right posterior iliac crest). No: CVA Tenderness (L), CVA Tenderness (R) Extremities: Other (no pain to movement, extension or flexion of the left leg, no pain to internal or external rotation of the hip. some pain in the right buttock/low back with lifting and extension of the right leg. no pain to flexion or internal or external rotation. ambulates and transfers well) Neurological: Alert, Confused Skin Exam: Warm Course - Vital Signs Last Recorded V/S: Last Vital Signs Temp 35.7 C L 10/23/21 10:34 Pulse 58 L 10/23/21 10:34 Resp 20 10/23/21 10:34 BP 149/90 H 10/23/21 10:34 Pulse Ox 98 10/23/21 10:34 - Orders/Labs/Meds Labs: Laboratory Tests 10/23/21 10/23/21 10/23/21 Range/Units 10:53 10:53 11:45 WBC 4.8 (4.0-10.0) x10^3/uL RBC 5.35 (4.5-6.0) x10^6/uL Hgb 15.0 (14.0-18.0) g/dL Hct 44.4 (40.0-52.0) % MCV 83.0 (78.0-93.0) fL MCH 28.0 (26.0-32.0) pg MCHC 33.8 (32.0-36.0) g/dL RDW Coeff of Liz 13.6 (10.0-15.0) % Plt Count 191 (130-400) x10^3/uL Immature Gran % (Auto) 0.20 (0.00-0.43) % Neut % (Auto) 73.8 (50.0-80.0) % Lymph % (Auto) 17.8 L (25.0-50.0) % [place] % (Auto) 6.6 (2.0-11.0) % Eos % (Auto) 1.4 (0.0-4.0) % Baso % (Auto) 0.2 (0.2-1.2) % Neut # (Auto) 3.6 (1.8-7.7) x10^3/uL Lymph # (Auto) 0.9 L (1.0-4.8) x10^3/uL [place] # (Auto) 0.3 (0.0-0.8) x10^3/uL Eos # (Auto) 0.1 (0.0-0.5) x10^3/uL Baso # (Auto) 0.0 (0.0-0.2) x10^3/uL Immature Gran # (Auto) 0.01 (0.00-0.07) x10^3/uL Sodium 142 (136-145) mmol/L Potassium 4.3 (3.5-5.1) mmol/L Chloride 107 (98-107) mmol/L Carbon Dioxide 25 (21-32) mmol/L Anion Gap 14.3 (5-15) mmol/L BUN 23 H (7-18) mg/dL Creatinine 1.1 (0.70-1.30) mg/dL Est Cr Clr Drug Dosing TNP Estimated GFR (MDRD) > 60 Glucose 108 H (70-99) mg/dL Calcium 9.2 (8.5-10.1) mg/dL Corrected Calcium 9.8 (8.5-10.1) mg/dL Total Bilirubin 0.3 (0.2-1.0) mg/dL AST 16 (15-37) U/L ALT 20 (16-63) U/L Alkaline Phosphatase 79 (46-116) U/L C-Reactive Protein 1.3 H (<=0.9) mg/dL Total Protein 7.1 (6.4-8.2) g/dL Albumin 3.3 L (3.4-5.0) g/dL Globulin 3.8 Albumin/Globulin Ratio 0.87 Urine Color Yellow (YELLOW) Urine Appearance Clear (CLEAR) Urine pH 6.0 (5.0-8.0) Ur Specific Lydia 1.020 Urine Protein Negative (NEGATIVE) mg/dL Urine Glucose (UA) Negative (NEGATIVE) mg/dL Urine Ketones Negative (NEGATIVE) mg/dL Urine Occult Blood Negative (NEGATIVE) Urine Nitrite Negative (NEGATIVE) Urine Bilirubin Negative (NEGATIVE) Urine Urobilinogen 0.2 (0.2) EU/dL Ur Leukocyte Esterase Negative (NEGATIVE) Meds: Medications Discontinued Medications Generic Name Dose Route Start Last Admin Trade Name Freq PRN Reason Stop Dose Admin Hydrocodone Bitart/Acetaminophen 1 tab 10/23/21 12:07 10/23/21 12:18 Acetaminophen/Hydrocodone 325-10 Mg Tab PO 10/23/21 12:08 1 tab ONETIME ONE Administration Hydrocodone Bitart/Acetaminophen 1 packet 10/23/21 12:26 Take Home: Acetaminophen/Hydrocodone 325-5 Mg, 5 Tab Pack PO 10/23/21 12:27 ONETIME ONE - Radiology Interpretation Free Text/Narrative:: lumbar spine x-ray with mild to moderate lumbar spondylosis most sigfnicant at L5-S1 prior posterior decompression and fusion at L4-5 without evidence of hardward complications pelvis x-ray with mild to moderate arthritis, no acute fracture. stent seen interpreted by radiologist - Re-Assessments/Exams Free Text/Narrative Re-Assessment/Exam: 10/23/21 11:20 difficult history due to history of confusion but daughter does relay that he has had pain in this area for the last couple of days. no falls or illness. will check labs, urine, l spine and pelvis x-ray 10/23/21 12:08 x-rays with degenerative changes. Patient was able to get up out of bed, stood to transfer to a wheelchair, stood to use a urinal. Dicussed with family that conservative care, topical lidocaine, biofreeze walker, pain medication and follow up with PCP for SANDI. Daughter is concerned about his ability to be at home due to the pain, they do have a walker. She would like admission. Discussed that admission for this without a trial of pain medication and outpatient treatment would most likely be an observation stay, and may need to result in swingbed or correction stay or placement if home is not an option. Discussed that with lack of more solid diagnosis, this may not be covered by medicare and beds are limited at our hospital at this time. She does continue to ask patient his desires, but given him cognitive deficit, I do not believe that he displays capacity to make any decisions or understand the discussion. Will attempt to give him a hydrocodone, allow this to work for the next 45 minutes and attempt to get him up with a walker. Given a sandwich with this. Did discuss with Dr. Roldan, his PCP, will arrange outpatient follow up. 10/23/21 13:06 Patient was able to get up and ambulate. Had walker available and he just carried it. RElative was present and witnessed this., return as needed for intractable pain, and inability to be safe at home. Close follow up with PCP Departure - Departure Time of Disposition: 13:05 Disposition: Home, Self-Care 01 Clinical Impression: Back pain with history of spinal surgery - Discharge Information Referrals: Bozena Roldan, [Primary Care Provider] - Forms: ED Department Discharge Additional Instructions: Due to the history of your previous fusion, some of the back pain could be coming from degenerative changes around this site and sometime epidural steroid injections will help this. Your PCP can coordinate this with Pain management to see if this is a solution for the pain as [facility] regular use of ibuprofen is discouraged in elderly populations due to risk for GI bleeding and ulcers. Use lidocaine patches ( salonpas), biofreeze, tylenol to help with the pain and make appointment with primary care for follow up . Labs were not concerning and urine was not infected. X-ray was without acute fracture. You were given a hydrocodone tablet in the Ed and ambulated with a walker. Use a walker at all times. The hydrocodone may make you tire, dizzy and constipated. Take stool softener to help, be cautious with quick changes in positions . You can take 1/2 to 1 tablet every 6 hours as needed for pain not managed by tylenol or motrin. Dr. Roldan is aware of your pain and will coordinate a possible back injection to help. Sepsis Event Note (ED) - Focused Exam Vital Signs: Vital Signs Temp Pulse Resp BP Pulse Ox 10/23/21 10:34 35.7 C L 58 L 20 149/90 H 98
[2021-10-23 11:17] LABS: ANION GAP 14.3 mmol/L (5-15); CHLORIDE,CL 107 mmol/L (98-107); SODIUM,NA 142 mmol/L (136-145)
--- NOTE | 2021-10-23 11:54 | CR ---
[id number] RAD/RAD Pelvis 1-2V EXAM: AP PELVIS CLINICAL DATA: Right low back pain, pelvis pain. COMPARISON: None. 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 No acute fracture or dislocation is identified. Partially characterized fusion hardware L4-L5. 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 IMPRESSION: 1. Mild to moderate osteoarthritis. Adeel Benito MD 10/23/21 [id number] Thank you for allowing us to participate in the care of your patient.
--- NOTE | 2021-10-23 11:55 | CR ---
[id number] RAD/RAD Lumbar Spine 2-3V EXAM: RAD Lumbar Spine 2-3V INDICATION: Right low back pain, pelvis pain. COMPARISON: None. DISCUSSION: Mild convex right curvature centered in the mid lumbar spine. Slight retrolisthesis L2-L3 and L3-L4. Posterior fusion and decompression at L4-L5 without evident hardware complication. Stent graft of the abdominal aorta with extension into both common iliac arteries. Moderate disc degeneration at L5-S1 with milder changes at the remaining disc levels. IMPRESSION: 1. 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 Prior posterior decompression and fusion at L4-L5 without evident hardware complication. Adeel Benito MD 10/23/21 [id number] Thank you for allowing us to participate in the care of your patient.
[2021-10-23] MEDS ORDERED: Acetaminophen/HYDROcodone 325-10 MG Tab PO ONE (12:07)
[2021-10-23] MEDS ORDERED: Take Home: Acetaminophen/HYDROcodone 325-5 MG, 5 Tab Pack PO ONE (12:26)
== END 2021-10-23 13:19 | disposition home or self-care (01) ==
LOC: VM.ED 10:34
DX: M54.50 Low back pain, unspecified (principal); I10 Essential (primary) hypertension; E03.9 Hypothyroidism, unspecified; Z98.890 Other specified postprocedural states; Z88.2 Allergy status to sulfonamides; Z79.82 Long term (current) use of aspirin; Z79.899 Other long term (current) drug therapy
CPT/HCPCS: 36415; 72100; 72170; 80053; 81003; 85025; 86140; 99284; A9270